=== PATIENT | male | born 1930 | race Caucasian/White ===

== ENCOUNTER 2019-08-18 06:19 | Emergency (ER) | payer MEDICARE, MEDICAID ==
[~2019-08-18] VITALS: Ht 162.6 cm; Wt 80.0 kg
[~2019-08-18 06:19] MED LIST: DOCU-150 PO; FEBU40TA PO; FINA5TAB11 PO; HYDR15CR37 TP
[2019-08-18 08:55] LABS: HEMATOCRIT. 22.7 % (42.0-52.0); MEAN CORPUSCULAR HEMOGLOBIN 25.2 pg (28.0-32.0); MEAN CORPUSCULAR VOLUME 85.7 fL (80.0-94.0); MEAN PLATELET VOLUME 10.2 fl (7.4-10.4); PLATELET 168 x1000/uL (130-400); RED BLOOD CELL COUNT 2.64 mill/uL (4.7-6.1); RED CELL DISTRIBUTION WIDTH 21.7 % (11.6-14.6)
[2019-08-18 09:00] LABS: HEMOGLOBIN. 6.7 g/dL (14.0-18.0)
[2019-08-18 09:03] LABS: CHLORIDE 109 mEq/L (98-107); INR 1.1; PROTHROMBIN TIME 10.9 sec (9.6-11.0)
[2019-08-18 11:01] LABS: NUCLEATED RED BLOOD CELLS 50 /100 WBC
[2019-08-18 11:04] LABS: PLATELET ESTIMATE NORMAL
[2019-08-18 11:31] LABS: CLARITY URINE CLEAR (CLEAR); COLOR URINE YELLOW (YELLOW); KETONES URINE NEGATIVE (NEGATIVE); LEUKOCYTE ESTERASE URINE TRACE (NEGATIVE); NITRITE URINE NEGATIVE (NEGATIVE); OCCULT BLOOD URINE 3+ (NEGATIVE); PH URINE 6.5 (4.5-8.0); PROTEIN URINE 1+ (NEGATIVE); SPECIFIC GRAVITY URINE 1.015 (1.005-1.030); UROBILINOGEN URINE 0.2 E.U./dL (0.2-1.0)
[2019-08-18] MEDS ORDERED: DIPHENHYDRAMINE 50MG/ML VIAL IV PRN (11:45)
[2019-08-18] MEDS ORDERED: ONDANSETRON HCL 4MG/2ML INJ IV PRN (11:45)
[2019-08-18 12:28] LABS: PHOSPHORUS 3.2 mg/dL (2.5-4.9)
[2019-08-18 17:46] LABS: HEMATOCRIT 27.4 % (42.0-52.0); HEMOGLOBIN 8.5 g/dL (14.0-18.0)
[2019-08-18 17:51] LABS: INR 1.1; PROTHROMBIN TIME 11.4 sec (9.6-11.0)
[2019-08-18] MEDS ORDERED: CEFUROXIME AXETIL 250MG TABLET PO NR (22:00)
[2019-08-18] MEDS: SODIUM CHLORIDE 0.9% 1,000 ML IV SCH (23:02)
[2019-08-19 08:40] LABS: CHLORIDE 108 mEq/L (98-107)
[2019-08-19 08:41] LABS: HEMATOCRIT. 28.3 % (42.0-52.0); HEMOGLOBIN. 8.8 g/dL (14.0-18.0); MEAN CORPUSCULAR HEMOGLOBIN 26.1 pg (28.0-32.0); MEAN CORPUSCULAR VOLUME 84.3 fL (80.0-94.0); MEAN PLATELET VOLUME 10.1 fl (7.4-10.4); PLATELET 157 x1000/uL (130-400); RED BLOOD CELL COUNT 3.36 mill/uL (4.7-6.1); RED CELL DISTRIBUTION WIDTH 19.3 % (11.6-14.6)
[2019-08-19 08:45] LABS: PHOSPHORUS 2.8 mg/dL (2.5-4.9)
[2019-08-19] MEDS ORDERED: POLYETHYLENE GLYCOL 3350 (17GM) 1 DOSE PACK PO NR (08:45)
[2019-08-19] MEDS ORDERED: FINASTERIDE 5MG TABLET PO NR (08:45)
[2019-08-19] MEDS ORDERED: AMLODIPINE 2.5MG TABLET PO NR (08:45)
[2019-08-19] MEDS: ACETAMINOPHEN 325MG TABLET PO PRN ×2 (08:56→17:49)
[2019-08-19] MEDS: DOCUSATE SODIUM 100MG CAPSULE PO SCH ×2 (08:58→17:48)
[2019-08-19] MEDS ORDERED: CEFUROXIME AXETIL 250MG TABLET PO NR (09:00)
[2019-08-19] MEDS ORDERED: CEFUROXIME AXETIL 500MG TABLET PO NR (09:00)
[2019-08-19 09:45] LABS: NUCLEATED RED BLOOD CELLS 48 /100 WBC
[2019-08-19 09:46] LABS: PLATELET ESTIMATE NORMAL
[2019-08-19] MEDS: SODIUM CHLORIDE 0.9% 1,000 ML IV SCH (12:17)
[2019-08-19] MEDS ORDERED: SODIUM CHLORIDE 0.9% INJ 3ML FLUSH IVF SCH (14:00)
[2019-08-19 20:43] VITALS: BP 180/72
[2019-08-19] MEDS ORDERED: CEFUROXIME AXETIL 500MG TABLET PO SCH (21:00)
[2019-08-20] MEDS ORDERED: AMLODIPINE 2.5MG TABLET PO SCH (09:00)
[2019-08-20] MEDS ORDERED: FINASTERIDE 5MG TABLET PO SCH (09:00)
[2019-08-20] MEDS ORDERED: POLYETHYLENE GLYCOL 3350 (17GM) 1 DOSE PACK PO SCH (09:00)
== END 2019-08-19 20:47 | disposition home or self-care (01) ==
LOC: ER 06:19 → EDBEDREQ 10:28 → EDBEDREQSVC 08-19 05:50 → EDBEDREQTM 08-19 05:52 → ER 08-19 20:47 → CANBEDREQ 08-19 21:06
DX: K92.2 Gastrointestinal hemorrhage, unspecified (principal); D64.9 Anemia, unspecified; I10 Essential (primary) hypertension; M10.9 Gout, unspecified; Z88.6 Allergy status to analgesic agent; Z88.8 Allergy status to other drugs, medicaments and biological substances; Z90.49 Acquired absence of other specified parts of digestive tract
CPT/HCPCS: 36415; 71045; 76770; 80053; 81003; 83540; 83550; 83735; 84100; 85014; 85018; 85025; 85044; 85049; 85384; 86850; 86900; 86920; 93005; 99291; P9021

== ENCOUNTER 2019-09-15 13:51 | Emergency (ER) | payer MEDICARE, MEDICAID ==
[~2019-09-15] VITALS: Ht 162.6 cm; Wt 80.0 kg
[2019-09-15 16:58] VITALS: BP 156/61
== END 2019-09-15 18:12 | disposition left against medical advice (07) ==
LOC: ER 13:51
DX: Z53.21 Procedure and treatment not carried out due to patient leaving prior to being seen by health care provider (principal); I10 Essential (primary) hypertension; M10.9 Gout, unspecified; Z85.6 Personal history of leukemia; Z88.6 Allergy status to analgesic agent; Z88.8 Allergy status to other drugs, medicaments and biological substances; Z85.46 Personal history of malignant neoplasm of prostate; Z90.49 Acquired absence of other specified parts of digestive tract